=== PATIENT | male | born 1985 ===

== ENCOUNTER 2018-03-19 17:26 | Inpatient (IN) | payer MEDICAID ==
[2018-03-19 17:35] VITALS: BMI 22.1
--- NOTE | 2018-03-19 17:57 | C.PDOC ---
History Of Present Illness Pt is a 32 year old male presents to ED requesting detox from heroin. Patient reports that he injects, and last use was this morning. Patient also reports he smokes cigarettes but no alcohol use. Patient also states he is experiencing symptoms of withdrawal - hot flashes and abdominal pain. Denies any medical problems or other complaints. PMD: "Complete care" <Pio Schwartz Jr. - Last Filed: 03/19/18 18:58> History Per: Patient History/Exam Limitations: no limitations Onset/Duration Of Symptoms: Hrs Current Symptoms Are (Timing): Still Present Suicide/Self Injury Attempted (Context): None Modifying Factor(s): Narcotics (Heroin ) Associated Symptoms: denies: Suicidal Thoughts, Suicidal Plan Involuntary Hold By: None Recent travel outside of the [place]: No <Pio Schwartz Jr. - Last Filed: 03/19/18 18:58> <Janki Gonzales - Last Filed: 03/19/18 19:56> Time Seen by Provider: 03/19/18 17:40 Chief Complaint (Nursing): Substance Abuse Past Medical History Reviewed: Historical Data, Nursing Documentation, Vital Signs Vital Signs: Last Vital Signs Temp 98.3 F 03/19/18 17:35 Pulse 82 03/19/18 17:35 Resp 20 03/19/18 17:35 BP 99/64 L 03/19/18 17:35 Pulse Ox 100 03/19/18 17:35 - Medical History PMH: No Chronic Diseases Surgical History: No Surg Hx Family History: States: No Known Family Hx - Social History Hx Tobacco Use: Yes Hx Alcohol Use: No Hx Substance Use: Yes - Immunization History Hx Tetanus Toxoid Vaccination: Yes Hx Influenza Vaccination: Yes Hx Pneumococcal Vaccination: Yes <Pio Schwartz Jr. - Last Filed: 03/19/18 18:58> Vital Signs: Last Vital Signs Temp 98.3 F 03/19/18 17:35 Pulse 82 03/19/18 17:35 Resp 20 03/19/18 17:35 BP 99/64 L 03/19/18 17:35 Pulse Ox 100 03/19/18 18:59 <Janki Gonzales - Last Filed: 03/19/18 19:56> Review Of Systems Constitutional: Positive for: Other (Hot flashes ). Negative for: Chills Gastrointestinal: Positive for: Abdominal Pain. Negative for: Nausea, Vomiting, Diarrhea Skin: Negative for: Rash Neurological: Negative for: Weakness, Numbness <Pio Schwartz Jr. - Last Filed: 03/19/18 18:58> Physical Exam - Physical Exam Appears: Non-toxic, No Acute Distress Skin: Normal Color, Warm, Dry, No Rash Head: Atraumatic, Normacephalic Eye(s): bilateral: EOMI Ear(s): Bilateral: Normal Nose: Normal Oral Mucosa: Moist Tongue: Normal Appearing Lips: Normal Appearing Throat: Normal Neck: Normal ROM, Supple Chest: Symmetrical, No Tenderness Cardiovascular: Rhythm Regular, No Murmur Respiratory: Normal Breath Sounds, No Accessory Muscle Use, No Rales, No Rhonchi, No Wheezing Gastrointestinal/Abdominal: Bowel Sounds (Active ), Soft, No Tenderness Extremity: Normal ROM, Other (Left upper extremity track mason ) Extremity: Bilateral: Atraumatic, Normal Color And Temperature, Normal ROM Neurological/Psych: Oriented x3, Normal Speech Gait: Steady <Pio Schwartz Jr. - Last Filed: 03/19/18 18:58> ED Course And Treatment O2 Sat by Pulse Oximetry: 100 (RA) Pulse Ox Interpretation: Normal <Pio Schwartz Jr. - Last Filed: 03/19/18 18:58> - Laboratory Results Result Diagrams: 03/19/18 19:05 03/19/18 19:05 <Janki Gonzales - Last Filed: 03/19/18 19:56> Medical Decision Making Medical Decision Making: Initial Impression: Opioid Use Disorder Initial Plan: Crisis will evaluate the patient (they are aware he is here). Will also send of detox screening labs <Pio Schwartz Jr. - Last Filed: 03/19/18 18:58> Disposition - Disposition Disposition Time: 18:56 <Pio Schwartz Jr. - Last Filed: 03/19/18 18:58> Discussed With DrLopez: Shane Moore Comment: accepted the pt on his service and took over the care at 7:55 PM Doctor Will See Patient In The: Hospital Counseled Patient/Family Regarding: Studies Performed, Diagnosis <Janki Gonzales - Last Filed: 03/19/18 19:56> - Disposition Disposition: HOSPITALIZED Condition: FAIR Forms: [facility] (Polish) - Clinical Impression Clinical Impression: Opioid use disorder - Scribe Statement The provider has reviewed the documentation as recorded by the Scribe Kavita Reynoso All medical record entries made by the Scribe were at my direction and personally dictated by me. I have reviewed the chart and agree that the record accurately reflects my personal performance of the history, physical exam, medical decision making, and the department course for this patient. I have also personally directed, reviewed, and agree with the discharge instructions and disposition. <Pio Schwartz Jr. - Last Filed: 03/19/18 18:58> Physician Patient Turnover Patient Signed Over To: Janki Gonzales Handoff Comments: To check pending labs and follow up with crisis. <Pio Schwartz Jr. - Last Filed: 03/19/18 18:58> Decision To Admit <Pio Schwartz Jr. - Last Filed: 03/19/18 18:58> - Pt Status Changed To: Hospital Disposition Of: Inpatient - Admit Certification Admit to Inpatient:: After my assessment, the patient will require hospitalization for at least two midnights. This is because of the severity of symptoms shown, intensity of services needed, and/or the medical risk in this patient being treated as an outpatient. - InPatient: Physician Admission Certification: I certify that this patient requires 2 or mor e midnights of care for the following reason:: After my assessment, the patient will require hospitalization for at least two midnights. This is because of the severity of symptoms shown, intensity of services needed, and/or the medical risk in this patient being treated as an outpatient. - . Bed Request Type: Detox Admitting Physician: Shane Moore <Janki Gonzales - Last Filed: 03/19/18 19:56> - . Patient Diagnosis: Opioid use disorder
[2018-03-19 19:13] LABS: BASO % 0.3 % (0.0-2.0); EOS # 0.2 K/uL (0.0-0.7); EOS % 2.2 % (0.0-4.0); HEMOGLOBIN 13.2 g/dL (12.0-18.0); LYMPH # 2.7 K/uL (1.0-4.3); LYMPH % 26.1 % (20.0-40.0); MEAN CELL VOLUME 90.1 fL (80.0-94.0); MEAN CORPUSCULAR HEMOGLOBIN 29.4 pg (27.0-31.0); MEAN CORPUSCULAR HGB CONC 32.6 g/dL (33.0-37.0); MEAN PLATELET VOLUME 8.8 fL (7.2-11.7); MONO # 0.6 K/uL (0.0-0.8); MONO % 6.2 % (0.0-10.0); NEUT # 6.8 K/uL (1.8-7.0); NEUT % 65.2 % (50.0-75.0); NRBC % 0.1 % (0.0-2.0); RBC 4.49 Mil/uL (4.40-5.90); RED CELL DISTRIBUTION WIDTH 13.7 % (11.5-14.5); WHITE BLOOD COUNT 10.4 K/uL (4.8-10.8)
[2018-03-19 19:15] LABS: SQUAMOUS EPITHIAL < 1 /hpf (0-5); URINE BILIRUBIN NEGATIVE (NEGATIVE); URINE BLOOD NEGATIVE (NEGATIVE); URINE CLARITY Clear (Clear); URINE COLOR Yellow (YELLOW); URINE GLUCOSE (UA) NORMAL (Normal); URINE LEUKOCYTE ESTERASE NEG Leu/uL (Negative); URINE PROTEIN NEGATIVE (NEGATIVE); URINE UROBILINOGEN NORMAL mg/dL (0.2-1.0)
[2018-03-19 19:27] LABS: ALB/GLOB RATIO 1.1 (1.0-2.1); ALBUMIN 3.9 g/dL (3.5-5.0); ALT/SGPT 28 U/L (21-72); AST/SGOT 20 U/L (17-59); BLOOD UREA NITROGEN 8 mg/dL (9-20); GFR NON-AFRICAN AMERICAN > 60
[2018-03-19 19:28] LABS: BARBITURATES, UR NEGATIVE (NEGATIVE); PHENCYCLIDINE, UR NEGATIVE (NEGATIVE)
[2018-03-19 19:32] LABS: BENZODIAZEPINES, UR POSITIVE (NEGATIVE); OPIATES, UR POSITIVE (NEGATIVE)
--- NOTE | 2018-03-19 20:16 | PCM.BM ---
<Chrissie Singletary - Last Filed: 03/19/18 20:14> Treatment Plan Problems - Problems identified on initial assessmt Ineffective Health maintenance Date Initiated: 03/19/18 Time Initiated: 20:14 Assessment reference: NA Status: Active Treatment assets and liabiliti Patient Assests: cooperative, ADL independent, negotiates basic needs, cognitively intact Patient Liabilities: substance abuse (opiates,cocaine,THC) - Milieu Protocol Maintain good personal hygiene: daily Encourage regular showers, daily Remind patient to perform daily oral care, daily Assist patient to perform ADL's Conduct patient checks and document Observation sheet: Q15 minutes Maintain personal safety: every shift Educate patient to report safety concerns to staff, every shift Monitor environment for contraband/sharps Medication safety: Monitor for expected outcome, potential side effects: every shift, Assess barriers to learning: every shift, Assess readiness for medication education: every shift <Anisha Good - Last Filed: 03/22/18 11:06> Family Contact Family involvement: Famliy/SO not involved - Goals for Treatment Patient goals for treatment: Complete detox and transition to outpatient counseling program. Discharge/Continuing Care - Education Needs Education Needs: Patient Medication, Patient Diagnosis/Disease Process, Patient Coping Skills, Patient Anger Management skills, Patient Placement options, Patient Community resources - Discharge Discharge Criteria: No longer exhibiting s/s of withdrawal, Reduction of target symptoms Discharge to:: Home - Treatment Team Participation Patient/Family/SO Statement: 03/22/18 11:05 "I got some legal stuff I gotta take care of...I can go to outpatient though..." Discussed with Family/SO: No Was Patient/Family/SO present at Treatment Team Meeting: Yes
[2018-03-19] MEDS ORDERED: Aluminum Hydroxide/Magnesium Hydroxide Susp (30 mL) PO PRN (21:09)
[2018-03-19] MEDS ORDERED: Buprenorphine Hydrochloride 2 mg SL ONE ×2 (21:15)
[2018-03-20] MEDS: Buprenorphine Hydrochloride 2 mg SL SCH (10:13)
--- NOTE | 2018-03-20 11:29 | PCM.PSYCH ---
Initial Psychiatric Evaluation - Initial Psychiatric Evaluation Type of Admission: Voluntary Legal Status: Capacity History of Present Illness and Precipitating Events: Patient is a 32 year old male who is currently in a relationship, lives with his mother, and is unemployed. He has one daughter, who is 1 years old. The patient came to detox yesterday for heroin use and so he could potentially get permission to see his daughter again. He says he sniffs and injects heroin. He last used 5 bags of heroin. He normally does 9-10 bags of heroin a day. He also uses crack and Percocet. He last used $30 worth of crack a couple of days ago. He used to smoke marijuana everyday. He no longer uses marijuana. This is the first time he's ever been to detox. He denies currently feeling depressed. He states that he occasionally feels depressed when he cant speak to his daughter. He denies suicidal or homicidal ideation. He denies having problems with sleep, energy, or guilt. He denies visual or auditory hallucinations, and denies any racing thoughts. He also denies alcohol use. He smokes a pack of cigarettes a day for a couple of years. Psych History- Anxiety and depressive sxs on and off, no admissions Family Psych History-denies PMH-denies Current Medications: Active Medications Generic Name Dose Route Start Last Admin Trade Name Cathy PRN Reason Stop Dose Admin Al Hydrox/Mg Hydrox/Simethicone 30 ml 03/19/18 21:09 Maalox 30 Ml PO TID PRN Indigestion / Heartburn Buprenorphine HCl 8 mg 03/20/18 10:00 03/20/18 10:13 Subutex SL 03/24/18 09:59 8 mg DAILY NANETTE Administration Taper Clonidine HCl 0.1 mg 03/19/18 21:01 Catapres PO Q4 PRN COWS Score More or Equal to 5 Dicyclomine HCl 20 mg 03/19/18 21:11 Bentyl PO Q6 PRN Abdominal cramps Gabapentin 300 mg 03/20/18 10:00 03/20/18 10:13 Neurontin PO 300 mg TID NANETTE Administration Ibuprofen 400 mg 03/19/18 21:12 Motrin Tab PO Q6 PRN Pain, moderate (4-7) Loperamide HCl 2 mg 03/19/18 21:09 Imodium PO Q8 PRN Diarrhea Nicotine 1 patch 03/20/18 11:30 Nicoderm Cq TD DAILY NANETTE Ondansetron HCl 4 mg 03/19/18 21:09 Zofran Tab PO Q8 PRN Nausea/Vomiting Trazodone HCl 50 mg 03/19/18 22:00 03/19/18 21:53 Desyrel PO 50 mg HS NANETTE Administration Past Psychiatric History - Past Psychiatric History Previous Treatment History: None Pertinent Medical Hx (Current Medical&Sleep Prob, Allergies): Allergies Allergy/AdvReac Type Severity Reaction Status Date / Time No Known Allergies Allergy Verified 03/19/18 17:34 No Known Home Med 03/19/18 Review of Systems - Neurological Neurological: UNREMARKABLE - Psychiatric Psychiatric: Abnormal Sleep Pattern, Anhedonia, Anxiety, Depression (mild), Difficulty Concentrating. absent: Homicidal Ideation, Paranoia, Suicidal Ideation Mental Status Examination - Personal Presentation Personal Presentation: Looks stated age - Affect Affect: Constricted - Motor Activity Motor Activity: Calm - Reliability in Providing Information Reliability in Providing Information: Fair - Speech Speech: Organized - Mood Mood: Depressed, Anxious - Formal Thought Process Formal Thought Process: No Impairment - Cognitive Functions Orientation: Person, Place, Situation, Time Sensorium: Alert Attention/Concentration: Easily distracted Estimate of Intelligence: Average Judgement: Intact, as evidence by: Insight regarding need for hospitalization Memory: Recent intact, as evidence by: Ability to recall events of the day, Remote intact, as evidenced by: Abilit to recall sig. life events - Risk Risk: Diminished functioning - Strength & Assets Inventory Strength & Assets Inventory: Cooperative - Limitations Limitations: Living alone DSM 5 DX - DSM 5 DSM 5 Diagnosis: Opioid withdrawal Opioid use d/o - severe cocaine use d/o - moderate Cannabis use d/o - severe Adjustment d/o with anxiety and depression - Recommended/Plan of Treatment Treatment Recommendations and Plan of Treatment: Taper with Suboxone Gabapentin for augmentation As needed medications All risks, benefits and alternatives of the meds discussed, and the pt agreed and understood. Attend groups and activities Supportive therapy and psychoeducation [place] for abstinence CBT for relapse prevention Encourage MAT Refer to rehab or IOP, and self-help groups Teach healthy lifestyle methods, i.e. diet, exercise, meditation Smoking cessation with [place] Nicotine patch if needed 34 min Projected ELOS: 4 days - Smoking Cessation Smoking Cessation Initiated: Yes
[2018-03-20 14:07] VITALS: RESP 18
[2018-03-20] MEDS ORDERED: Buprenorphine Hydrochloride 2 mg SL SCH (21:08)
[2018-03-21] MEDS: Buprenorphine Hydrochloride 2 mg SL SCH (09:45)
[2018-03-22] MEDS: Buprenorphine Hydrochloride 2 mg SL SCH (09:34)
[2018-03-22 14:18] VITALS: O2SAT 99
--- NOTE | 2018-03-22 17:05 | RAD ---
HISTORY: rehab admission COMPARISON: No prior. TECHNIQUE: Chest PA and lateral FINDINGS: LUNGS: No focal consolidation. Please note that chest x-ray has limited sensitivity for the detection of pulmonary masses. PLEURA: No significant pleural effusion identified. No definite pneumothorax . CARDIOVASCULAR: Heart size appears within normal limits. No atherosclerotic calcification present. OSSEOUS STRUCTURES: No acute osseous abnormality identified. VISUALIZED UPPER ABDOMEN: Unremarkable. OTHER FINDINGS: None. IMPRESSION: No focal consolidation, significant pleural effusion, or definite pneumothorax identified.
[2018-03-22 17:31] VITALS: BP 136/92; PULSE 106; TEMP 97.5
--- NOTE | 2018-03-22 18:46 | PCM.PYCHPN ---
Psychiatric Progress Note - Psychiatric Progress Note Patient seen today, length of contact: 15 min Mental Status Examination - Cognitive Function Orientation: Person, Place, Situation, Time - Mood Mood: Depressed, Anxious - Affect Affect: Constricted - Formal Thought Process Formal Thought Process: No Impairment - Homicidal Ideation Homicidal Ideation: No Goal/Treatment Plan - Goal/Treatment Plan Progress Toward Problem(s) and Goals/Treatment Plan: Taper with Suboxone Gabapentin for augmentation As needed medications All risks, benefits and alternatives of the meds discussed, and the pt agreed and understood. Attend groups and activities Supportive therapy and psychoeducation [place] for abstinence CBT for relapse prevention Encourage MAT Refer to rehab or IOP, and self-help groups Teach healthy lifestyle methods, i.e. diet, exercise, meditation Smoking cessation with [place] Nicotine patch if needed 34 min
--- NOTE | 2018-03-22 18:49 | PCM.PYCHDC ---
Mental Status Examination - Mental Status Examination Orientation: Person, Place, Situation, Time Memory: Intact Mood: Anxious Affect: Constricted Speech: Appropriate Attention: WNL Concentration: WNL Association: WNL Fund of Knowledge: WNL Formal Thought Process: No Impairment Suicidal Ideation: No Current Homicidal Ideation?: No Discharge Summary - Discharge Note Consultations:: List each consultation separately and include: 1. Reason for request. 2. Findings. 3. Follow-up Summary of Hospital Course include:: 1. Description of specific treatment plan utilized for patients during their course of treatmen. 2. Summarize the time- course for resolution of acute symptoms and/or regressed behaviors. 3. Describe issues identified and worked on during hospitalization. 4. Describe medication utilized. 5. Describe medical problems identified and treated. 6. Reassessment of suicide risk Summary of Hospital Course: Patient is a 32 year old male who is currently in a relationship, lives with his mother, and is unemployed. He has one daughter, who is 1 years old. The patient came to detox yesterday for heroin use and so he could potentially get permission to see his daughter again. He says he sniffs and injects heroin. He last used 5 bags of heroin. He normally does 9-10 bags of heroin a day. He also uses crack and Percocet. He last used $30 worth of crack a couple of days ago. He used to smoke marijuana everyday. He no longer uses marijuana. This is the first time he's ever been to detox. He denies currently feeling depressed. He states that he occasionally feels depressed when he cant speak to his daughter. He denies suicidal or homicidal ideation. He denies having problems with sleep, energy, or guilt. He denies visual or auditory hallucinations, and denies any racing thoughts. He also denies alcohol use. He smokes a pack of cigarettes a day for a couple of years. Psych History- Anxiety and depressive sxs on and off, no admissions Family Psych History-denies PMH-denies Hospital course: The pt was admitted and started on treatment with psychotherapy, support, psy choeducation and medications. PA and CBT used. The pt attended groups and activities, as well as milieu therapy. All the risks and benefits of medications are discussed and the patient understood and agreed. The pt improved with the treatments provided. After care discussed with the patient. [facility] but he first needs to go to a court tomorrow. Since the court was at 9 am, he wanted to leave today. - Final Diagnosis (DSM 5) Condition upon Discharge: FAIR DSM 5: Opioid withdrawal Opioid use d/o - severe cocaine use d/o - moderate Cannabis use d/o - severe Adjustment d/o with anxiety and depression Disposition: HOME/ ROUTINE Follow-up Treatment Plan: Continue below medications after discharge. Follow after care plan as discussed. Use relapse prevention skills Return to ER or call 911 if suicidal, homicidal or symptoms relapse. Stay away from stress, alcohol and drugs. See primary doctor regularly and get labs. Prescriptions/Medication Reconciliation: traZODone [Desyrel] 50 mg PO HS #30 tab
== END 2018-03-22 18:36 | disposition home or self-care (01) | DRG 773 ==
LOC: C.ER 17:26 → C.7D 19:54
PROC: GZHZZZZ Group Psychotherapy (ICD-10-PCS; principal; 2018-03-19)
PROC: GZ56ZZZ Individual Psychotherapy, Supportive (ICD-10-PCS; 2018-03-19)
DX: F11.23 Opioid dependence with withdrawal (principal); F17.210 Nicotine dependence, cigarettes, uncomplicated; F12.90 Cannabis use, unspecified, uncomplicated; F14.90 Cocaine use, unspecified, uncomplicated; F43.22 Adjustment disorder with anxiety